=== PATIENT | female | born 1940 | race Caucasian/White ===

== ENCOUNTER 2020-10-25 09:11 | Inpatient (IN) ==
[2020-10-25 09:46] LABS: Bacteria,Urine Few per hpf (None-Few); Bilirubin,Urine Negative (Negative); Blood,Urine Trace (Negative); Clarity,Urine Clear (Clear); Color,Urine Light-Yellow (Yellow); Glucose,Urine (UA) Normal (Normal); Hyaline Casts,Urine Many per lpf (None Seen); Ketones,Urine Negative (Negative); Leukocyte Esterase,Urine Trace (Negative); Mucus,Urine Few per lpf (None-Few); Nitrite,Urine Negative (Negative); Protein,Urine Negative (Neg-Trace); Specific Gravity,Urine 1.014 (1.010-1.025); Urobilinogen,Urine Normal (Normal)
[2020-10-25 10:01] LABS: Eosinophils % 0.3 %; Immature Granulocytes % 0.7 % (0-4); Platelet Count 108 K/mcL (140-400); Red Blood Count 1.71 M/mcL (3.82-4.97)
[2020-10-25 10:02] LABS: Basophils % 0.2 %; Hematocrit 16.9 % (35.3-44.9); Lymphocytes # 0.5 K/mcL (0.6-4.6); Lymphocytes % 7.9 %; Mean Corpuscular HGB Conc 29.6 g/dL (31.6-35.5); Mean Corpuscular Hemoglobin 29.2 pg (28.0-33.3); Mean Corpuscular Volume 98.8 fL (83.0-100.0); Monocytes # 0.6 K/mcL (0.0-1.3); Monocytes % 9.9 %; Neutrophils # 4.6 K/mcL (1.6-8.9); Nucleated Red Blood Cells 0.5 /100 WBC (0); White Blood Count 5.7 K/mcL (4.3-11.1)
[2020-10-25 10:13] LABS: INR 1.6; Prothrombin Time 17.7 Seconds (9.4-12.1)
[2020-10-25 10:23] LABS: Albumin 3.4 g/dL (3.5-5.7); Albumin/Globulin Ratio 1.3 (1.1-2.2); Bilirubin,Direct 0.4 mg/dL (0.0-0.2); Bilirubin,Indirect 0.5 mg/dL (0.0-1.0); Bilirubin,Total 0.9 mg/dL (0.3-1.0); Calcium 8.7 mg/dL (8.6-10.3); Globulin 2.6 g/dL (2.4-3.5); Magnesium 2.3 mg/dL (1.6-2.6); Phosphorous 3.7 mg/dL (2.7-4.5); Potassium 4.1 mEq/L (3.5-5.1); Troponin I 0.03 ng/mL (< 0.04)
[2020-10-25 10:25] LABS: Anisocytosis 1+ (Not Present); Hypochromasia Present (Not Present); Poikilocytosis 1+ (Not Present); Polychromasia 1+ (Not Present)
[2020-10-25] MEDS ORDERED: 0.9 % Sodium Chloride 1,000 ML IVC ONE (10:25)
[2020-10-25] MEDS ORDERED: cefTRIAXone 1,000 MG in Water for inj. (sterile) 10 ML IVP ONE (10:55)
[2020-10-25] MEDS ORDERED: 0.9 % Sodium Chloride 250 ML ONE ×3 (12:09→15:53)
[2020-10-25] MEDS ORDERED: Ondansetron 4 MG/2 ML VIAL IVP PRN (12:19)
[2020-10-25] MEDS ORDERED: Naloxone 0.4 MG/ML INJ IVP PRN (12:19)
[2020-10-25] MEDS ORDERED: Ipratropium/Albuterol Neb 3 ML IH PRN (13:28)
[2020-10-25] MEDS ORDERED: Perflutren Lipid Microsphere 1.3 ML in 0.9 % Sodium Chloride 8.7 ML IVP PRN (13:42)
[2020-10-25] MEDS ORDERED: Dextrose Gel 15 GM/37.5 ML TUBE PO PRN ×2 (13:51)
[2020-10-25] MEDS ORDERED: *HR* Dextrose 50 % in Water (Vial) 50 ML VIAL IVP PRN (13:51)
[2020-10-25] MEDS ORDERED: D5% in Water 1,000 ML IVC PRN (13:51)
[2020-10-25] MEDS: Furosemide 40 MG/4 ML VIAL IVP ONE (13:54)
[2020-10-25 14:53] LABS: Chol/HDL Ratio 2.3 (0-4.9)
[2020-10-25 15:06] LABS: Thyroid Stimulating Hormone 3.612 mcIU/mL (0.340-5.600)
[2020-10-25 16:26] LABS: Estimated Average Glucose 114 mg/dl; Hemoglobin A1C 5.6 %
[2020-10-25 17:15] LABS: ABG Base Excess -1 mEq/L (-2 to 3); ABG HCO3 23 mEq/L (21-27); ABG Oxygen Saturation 94 % (95-98); ABG PCO2 34 mmHg (35-45); ABG PH 7.44 pH Units (7.32-7.45); ABG PO2 67 mmHg (85-104); ABG TCO2 24 mEq/L (20-26)
[2020-10-25] MEDS: Ipratropium/Albuterol Neb 3 ML IH SCH ×3 (17:16→23:20)
[2020-10-25] MEDS ORDERED: SODIUM CHLORIDE/NAHCO3/KCL/PEG 4,000 ML SOLN.RECON PO ONE ×2 (18:05→20:00)
[2020-10-25 18:59] LABS: Hematocrit 25.8 % (35.3-44.9)
[2020-10-25 19:02] LABS: Hemoglobin 8.1 g/dL (11.5-15.4)
[2020-10-25] MEDS: Pantoprazole 40 MG VIAL IVP SCH (19:02)
[2020-10-25] MEDS: carvediloL 6.25 MG TABLET PO SCH (20:09)
[2020-10-26 02:25] LABS: Basophils % 0.1 %; Eosinophils % 0.1 %; Hematocrit 23.5 % (35.3-44.9); Hemoglobin 7.4 g/dL (11.5-15.4); Immature Granulocytes % 0.6 % (0-4); Lymphocytes # 0.3 K/mcL (0.6-4.6); Lymphocytes % 4.4 %; Mean Corpuscular HGB Conc 31.5 g/dL (31.6-35.5); Mean Corpuscular Hemoglobin 28.1 pg (28.0-33.3); Mean Platelet Volume 9.6 fL (9.4-12.4); Monocytes # 0.7 K/mcL (0.0-1.3); Monocytes % 8.9 %; Neutrophils # 6.7 K/mcL (1.6-8.9); Nucleated Red Blood Cells 0.3 /100 WBC (0); Platelet Count 104 K/mcL (140-400); Red Blood Count 2.63 M/mcL (3.82-4.97); Red Cell Distribution Width 21.2 % (11.5-14.5); Segmented Neutrophils % 85.9 %; White Blood Count 7.8 K/mcL (4.3-11.1)
[2020-10-26 02:26] LABS: Mean Corpuscular Volume 89.4 fL (83.0-100.0)
[2020-10-26 02:32] LABS: INR 1.4
[2020-10-26 02:42] LABS: Albumin/Globulin Ratio 1.1 (1.1-2.2); Bilirubin,Total 1.2 mg/dL (0.3-1.0); Calcium 7.9 mg/dL (8.6-10.3); Globulin 2.7 g/dL (2.4-3.5); Phosphorous 3.2 mg/dL (2.7-4.5); Potassium 3.6 mEq/L (3.5-5.1); Total Protein 5.7 g/dL (6.4-8.9)
[2020-10-26 02:43] LABS: % Iron Saturation 4 % (15-50); Iron 15 mcg/dL (50-170); Transferrin 253 mg/dL (203-362)
[2020-10-26 03:01] LABS: Ferritin 65 ng/mL (10-120)
[2020-10-26 03:09] LABS: Folate 10.6 ng/mL (3.0-16.0)
[2020-10-26] MEDS: Ipratropium/Albuterol Neb 3 ML IH SCH ×7 (03:35→23:03)
[2020-10-26] MEDS: Pantoprazole 40 MG VIAL IVP SCH ×2 (05:36→16:54)
[2020-10-26] MEDS: clonazePAM 0.5 MG TABLET PO SCH (08:58)
[2020-10-26] MEDS: cefTRIAXone 1,000 MG in 0.9 % Sodium Chloride Mini Bag 100 ML IVPB SCH (08:58)
[2020-10-26] MEDS: carvediloL 6.25 MG TABLET PO SCH ×2 (08:58→16:53)
[2020-10-26 13:48] LABS: Adenovirus Not Detected (Not Detect); Bordetella Pertussis Not Detected (Not Detect); Chlamydophila pneumoniae Not Detected (Not Detect); Coronavirus 229E Not Detected (Not Detect); Coronavirus HKU1 Not Detected (Not Detect); Coronavirus NL63 Not Detected (Not Detect); Coronavirus OC43 Not Detected (Not Detect); Human Metapneumovirus Not Detected (Not Detect); Human Rhinovirus/Enterovirus Not Detected (Not Detect); Influenza A Subtype 2009 H1 Not Detected (Not Detect); Influenza B Not Detected (Not Detect); Mycoplasma pneumoniae Not Detected (Not Detect); Parainfluenza Virus 1 Not Detected (Not Detect); Parainfluenza Virus 2 Not Detected (Not Detect); Parainfluenza Virus 3 Not Detected (Not Detect); Parainfluenza Virus 4 Not Detected (Not Detect); Respiratory Syncytial Virus Not Detected (Not Detect); SARS-CoV-2 Not Detected (Not Detect)
[2020-10-26] MEDS ORDERED: Lidocaine -MPF 2% 2 ML VIAL ONE (14:22)
[2020-10-26] MEDS ORDERED: *HR* Propofol 200 MG/20 ML VIAL IVP ONE ×2 (14:22→15:00)
[2020-10-26] MEDS ORDERED: Furosemide 40 MG/4 ML VIAL IVP ONE (14:23)
[2020-10-26] MEDS ORDERED: Saline Nasal Spray 44 ML BOTTLE NS PRN (14:41)
[2020-10-26] MEDS: Insulin LISPRO 300 UNITS/3 ML VIAL SUBQ SCH ×2 (14:52→17:11)
[2020-10-26] MEDS ORDERED: Albuterol 2.5 MG/3 ML NEBULIZER ONE (15:25)
[2020-10-26] MEDS ORDERED: Albuterol 2.5 MG/3 ML NEBULIZER IH ONE (15:27)
[2020-10-26 16:18] LABS: ABG Base Excess -1 mEq/L (-2 to 3); ABG HCO3 24 mEq/L (21-27); ABG Oxygen Saturation 91 % (95-98); ABG PCO2 42 mmHg (35-45); ABG PH 7.36 pH Units (7.32-7.45); ABG PO2 64 mmHg (85-104); ABG TCO2 25 mEq/L (20-26)
[2020-10-26 16:28] LABS: Hematocrit 30.9 % (35.3-44.9)
[2020-10-26 16:30] LABS: Hemoglobin 9.8 g/dL (11.5-15.4)
[2020-10-26] MEDS: Albumin 25% 25gram/100mL 25 GM/100 ML IV.SOLN IVPB SCH ×2 (16:52→23:05)
[2020-10-26] MEDS: Furosemide 40 MG/4 ML VIAL IVP ONE (16:54)
[2020-10-26] MEDS: Furosemide 20 MG/2 ML VIAL IVP SCH (16:55)
[2020-10-26 18:40] LABS: ABG Base Excess -1 mEq/L (-2 to 3); ABG HCO3 24 mEq/L (21-27); ABG Oxygen Saturation 90 % (95-98); ABG PCO2 38 mmHg (35-45); ABG PH 7.41 pH Units (7.32-7.45); ABG PO2 57 mmHg (85-104); ABG TCO2 25 mEq/L (20-26)
[2020-10-26] MEDS ORDERED: Morphine Sulfate 2 MG/ML SYRINGE IVP STA (19:30)
[2020-10-26] MEDS: Chlorhexidine Rinse 15 ML MOUTHWASH MM SCH (20:10)
[2020-10-27] MEDS: Furosemide 20 MG/2 ML VIAL IVP SCH ×2 (00:53→12:30)
[2020-10-27] MEDS: Ipratropium/Albuterol Neb 3 ML IH SCH ×5 (03:32→19:55)
[2020-10-27] MEDS: Pantoprazole 40 MG VIAL IVP SCH (05:00)
[2020-10-27 07:06] LABS: Hematocrit 25.8 % (35.3-44.9); Immature Granulocytes % 0.3 % (0-4); Immature Platelets 3.5 % (1.1-6.1); Lymphocytes # 0.4 K/mcL (0.6-4.6); Mean Corpuscular Hemoglobin 28.1 pg (28.0-33.3); Mean Corpuscular Volume 90.5 fL (83.0-100.0); Mean Platelet Volume 10.6 fL (9.4-12.4); Monocytes # 0.6 K/mcL (0.0-1.3); Monocytes % 8.3 %; Nucleated Red Blood Cells 0.3 /100 WBC (0); Red Blood Count 2.85 M/mcL (3.82-4.97); Red Cell Distribution Width 20.2 % (11.5-14.5); Segmented Neutrophils % 86.4 %
[2020-10-27 07:12] LABS: Neutrophils # 6.1 K/mcL (1.6-8.9); Platelet Count 96 K/mcL (140-400)
[2020-10-27 07:28] LABS: Albumin 3.7 g/dL (3.5-5.7); Albumin/Globulin Ratio 1.5 (1.1-2.2); Bilirubin,Total 1.3 mg/dL (0.3-1.0); Calcium 8.6 mg/dL (8.6-10.3); Globulin 2.4 g/dL (2.4-3.5); Magnesium 2.1 mg/dL (1.6-2.6); Phosphorous 3.5 mg/dL (2.7-4.5); Potassium 3.4 mEq/L (3.5-5.1); Total Protein 6.1 g/dL (6.4-8.9)
[2020-10-27] MEDS: Insulin LISPRO 300 UNITS/3 ML VIAL SUBQ SCH ×3 (10:27→16:35)
[2020-10-27] MEDS: clonazePAM 0.5 MG TABLET PO SCH (10:27)
[2020-10-27] MEDS: Multivit/Ca/Min/Fe/FA 1 TAB TABLET PO SCH (10:28)
[2020-10-27] MEDS: Albumin 25% 25gram/100mL 25 GM/100 ML IV.SOLN IVPB SCH (10:28)
[2020-10-27] MEDS: carvediloL 6.25 MG TABLET PO SCH ×2 (10:28→16:34)
[2020-10-27] MEDS: cefTRIAXone 1,000 MG in 0.9 % Sodium Chloride Mini Bag 100 ML IVPB SCH (10:29)
[2020-10-27] MEDS: Chlorhexidine Rinse 15 ML MOUTHWASH MM SCH ×2 (10:29→20:38)
[2020-10-27] MEDS: amLODIPine 5 MG TABLET PO SCH (10:30)
[2020-10-27] MEDS ORDERED: Ferumoxytol 510 MG in 0.9 % Sodium Chloride 100 ML IVPB ONE (10:47)
[2020-10-27 13:10] LABS: Hematocrit 24.4 % (35.3-44.9)
[2020-10-27 13:12] LABS: Hemoglobin 7.9 g/dL (11.5-15.4)
[2020-10-28] MEDS: Ipratropium/Albuterol Neb 3 ML IH SCH ×6 (00:17→20:01)
[2020-10-28 05:53] LABS: Eosinophils % 1.2 %; Immature Granulocytes % 0.5 % (0-4); Red Blood Count 3.02 M/mcL (3.82-4.97); Red Cell Distribution Width 19.8 % (11.5-14.5)
[2020-10-28 05:55] LABS: Basophils % 0.2 %; Eosinophils # 0.1 K/mcL (0.0-0.6); Hematocrit 27.5 % (35.3-44.9); Hemoglobin 8.6 g/dL (11.5-15.4); Immature Platelets 3.8 % (1.1-6.1); Lymphocytes # 0.4 K/mcL (0.6-4.6); Lymphocytes % 6.8 %; Mean Corpuscular HGB Conc 31.3 g/dL (31.6-35.5); Mean Corpuscular Hemoglobin 28.5 pg (28.0-33.3); Mean Corpuscular Volume 91.1 fL (83.0-100.0); Mean Platelet Volume 10.6 fL (9.4-12.4); Monocytes # 0.5 K/mcL (0.0-1.3); Neutrophils # 4.8 K/mcL (1.6-8.9); Platelet Count 100 K/mcL (140-400); Segmented Neutrophils % 83.3 %; White Blood Count 5.7 K/mcL (4.3-11.1)
[2020-10-28 06:29] LABS: Albumin 3.7 g/dL (3.5-5.7); Albumin/Globulin Ratio 1.4 (1.1-2.2); Bilirubin,Total 1.4 mg/dL (0.3-1.0); Calcium 8.9 mg/dL (8.6-10.3); Globulin 2.6 g/dL (2.4-3.5); Magnesium 2.3 mg/dL (1.6-2.6); Phosphorous 3.1 mg/dL (2.7-4.5); Potassium 3.8 mEq/L (3.5-5.1); Total Protein 6.3 g/dL (6.4-8.9)
[2020-10-28] MEDS ORDERED: Torsemide 20 MG TABLET PO SCH (09:00)
[2020-10-28] MEDS: carvediloL 6.25 MG TABLET PO SCH ×2 (09:12→19:36)
[2020-10-28] MEDS: clonazePAM 0.5 MG TABLET PO SCH (09:13)
[2020-10-28] MEDS: Insulin LISPRO 300 UNITS/3 ML VIAL SUBQ SCH ×4 (09:13→22:33)
[2020-10-28] MEDS: amLODIPine 5 MG TABLET PO SCH (09:13)
[2020-10-28] MEDS: Chlorhexidine Rinse 15 ML MOUTHWASH MM SCH ×2 (09:13→22:33)
[2020-10-28] MEDS: Multivit/Ca/Min/Fe/FA 1 TAB TABLET PO SCH (09:13)
[2020-10-28] MEDS ORDERED: Furosemide 40 MG/4 ML VIAL IVP ONE (13:31)
[2020-10-28] MEDS ORDERED: Albumin 25% 25gram/100mL 25 GM/100 ML IV.SOLN IVPB ONE (13:32)
[2020-10-28] MEDS: Melatonin 3 MG TABLET PO PRN (22:33)
[2020-10-28] MEDS ORDERED: Haloperidol Lactate 5 MG/ML VIAL IM ONE (23:01)
[2020-10-29] MEDS: Ipratropium/Albuterol Neb 3 ML IH SCH ×7 (00:30→23:14)
[2020-10-29 01:56] LABS: Basophils % 0.2 %; Eosinophils # 0.1 K/mcL (0.0-0.6); Eosinophils % 1.2 %; Hematocrit 28.4 % (35.3-44.9); Hemoglobin 8.7 g/dL (11.5-15.4); Immature Granulocytes % 0.3 % (0-4); Lymphocytes # 0.4 K/mcL (0.6-4.6); Lymphocytes % 5.8 %; Mean Corpuscular HGB Conc 30.6 g/dL (31.6-35.5); Mean Corpuscular Volume 91.3 fL (83.0-100.0); Mean Platelet Volume 10.4 fL (9.4-12.4); Monocytes # 0.5 K/mcL (0.0-1.3); Monocytes % 8.4 %; Neutrophils # 5.1 K/mcL (1.6-8.9); Platelet Count 114 K/mcL (140-400); Red Blood Count 3.11 M/mcL (3.82-4.97); Red Cell Distribution Width 19.3 % (11.5-14.5); Segmented Neutrophils % 84.1 %
[2020-10-29 02:08] LABS: Albumin 3.8 g/dL (3.5-5.7); Albumin/Globulin Ratio 1.4 (1.1-2.2); Bilirubin,Total 1.3 mg/dL (0.3-1.0); Calcium 9.2 mg/dL (8.6-10.3); Globulin 2.8 g/dL (2.4-3.5); Magnesium 2.3 mg/dL (1.6-2.6); Phosphorous 3.2 mg/dL (2.7-4.5); Potassium 3.7 mEq/L (3.5-5.1); Total Protein 6.6 g/dL (6.4-8.9)
[2020-10-29] MEDS ORDERED: QUEtiapine Fumarate 25 MG TABLET PO ONE (02:09)
[2020-10-29] MEDS: carvediloL 6.25 MG TABLET PO SCH ×2 (08:41→17:01)
[2020-10-29] MEDS: cefTRIAXone 1,000 MG in 0.9 % Sodium Chloride Mini Bag 100 ML IVPB SCH (08:42)
[2020-10-29] MEDS: Multivit/Ca/Min/Fe/FA 1 TAB TABLET PO SCH (08:42)
[2020-10-29] MEDS: Azithromycin 250 MG TABLET PO SCH (08:42)
[2020-10-29] MEDS: amLODIPine 5 MG TABLET PO SCH (08:42)
[2020-10-29] MEDS: clonazePAM 0.5 MG TABLET PO SCH (08:42)
[2020-10-29] MEDS: Insulin LISPRO 300 UNITS/3 ML VIAL SUBQ SCH ×4 (08:43→20:57)
[2020-10-29] MEDS: Chlorhexidine Rinse 15 ML MOUTHWASH MM SCH ×2 (08:44→20:55)
[2020-10-29] MEDS ORDERED: Furosemide 40 MG/4 ML VIAL IVP ONE (11:21)
[2020-10-29] MEDS ORDERED: Albumin 25% 25gram/100mL 25 GM/100 ML IV.SOLN IVPB ONE (11:22)
[2020-10-29 15:02] LABS: VBG HCO3 26 mEq/L (21-27); VBG PCO2 44 mmHg (41-51); VBG PH 7.38 pH Units (7.32-7.42); VBG PO2 181 mmHg (25-50)
[2020-10-29] MEDS ORDERED: Haloperidol Lactate 5 MG/ML VIAL IM PRN (18:48)
[2020-10-29] MEDS: Melatonin 3 MG TABLET PO PRN (20:55)
[2020-10-29] MEDS: QUEtiapine Fumarate 25 MG TABLET PO SCH (20:55)
[2020-10-30] MEDS: Ipratropium/Albuterol Neb 3 ML IH SCH ×6 (03:52→23:25)
[2020-10-30] MEDS ORDERED: Haloperidol Lactate 5 MG/ML VIAL IM ONE (04:09)
[2020-10-30] MEDS ORDERED: Furosemide 20 MG/2 ML VIAL IVP ONE (07:44)
[2020-10-30] MEDS: Chlorhexidine Rinse 15 ML MOUTHWASH MM SCH ×2 (07:50→21:14)
[2020-10-30] MEDS: clonazePAM 0.5 MG TABLET PO SCH (07:50)
[2020-10-30] MEDS: carvediloL 6.25 MG TABLET PO SCH ×2 (07:51→16:04)
[2020-10-30] MEDS: Multivit/Ca/Min/Fe/FA 1 TAB TABLET PO SCH (07:51)
[2020-10-30] MEDS: Azithromycin 250 MG TABLET PO SCH (07:51)
[2020-10-30] MEDS: amLODIPine 5 MG TABLET PO SCH (07:51)
[2020-10-30] MEDS: cefTRIAXone 1,000 MG in 0.9 % Sodium Chloride Mini Bag 100 ML IVPB SCH (07:51)
[2020-10-30 08:27] LABS: Basophils % 0.3 %; Eosinophils # 0.2 K/mcL (0.0-0.6); Eosinophils % 2.5 %; Hematocrit 32.4 % (35.3-44.9); Hemoglobin 9.7 g/dL (11.5-15.4); Immature Granulocytes % 0.6 % (0-4); Lymphocytes # 0.3 K/mcL (0.6-4.6); Lymphocytes % 4.4 %; Mean Corpuscular HGB Conc 29.9 g/dL (31.6-35.5); Mean Corpuscular Hemoglobin 27.9 pg (28.0-33.3); Mean Corpuscular Volume 93.1 fL (83.0-100.0); Monocytes # 0.5 K/mcL (0.0-1.3); Monocytes % 7.5 %; Neutrophils # 6.1 K/mcL (1.6-8.9); Platelet Count 122 K/mcL (140-400); Red Blood Count 3.48 M/mcL (3.82-4.97); Red Cell Distribution Width 18.6 % (11.5-14.5); Segmented Neutrophils % 84.7 %; White Blood Count 7.2 K/mcL (4.3-11.1)
[2020-10-30 08:50] LABS: Calcium 9.5 mg/dL (8.6-10.3); Magnesium 2.1 mg/dL (1.6-2.6); Phosphorous 3.4 mg/dL (2.7-4.5); Potassium 3.6 mEq/L (3.5-5.1)
[2020-10-30] MEDS: Insulin LISPRO 300 UNITS/3 ML VIAL SUBQ SCH ×4 (09:28→22:23)
[2020-10-30] MEDS ORDERED: Albumin 25% 25gram/100mL 25 GM/100 ML IV.SOLN IV ONE (10:32)
[2020-10-30] MEDS ORDERED: Albumin 25% 25gram/100mL 25 GM/100 ML IV.SOLN IVPB ONE (11:30)
[2020-10-30 11:38] LABS: Amorphous Sediment,Urine Few per hpf (None-Few); Bacteria,Urine Few per hpf (None-Few); Bilirubin,Urine Negative (Negative); Blood,Urine Large (Negative); Budding Yeast,Urine Many per hpf (None Seen); Clarity,Urine Turbid (Clear); Color,Urine Yellow (Yellow); Glucose,Urine (UA) Normal (Normal); Hyaline Casts,Urine Many per lpf (None Seen); Ketones,Urine Negative (Negative); Leukocyte Esterase,Urine Small (Negative); Mucus,Urine Few per lpf (None-Few); Nitrite,Urine Negative (Negative); Protein,Urine 100 mg/dL (Neg-Trace); RBC,Urine 50-100 per hpf (0-3); Specific Gravity,Urine 1.014 (1.010-1.025); Urobilinogen,Urine Normal (Normal)
[2020-10-30] MEDS ORDERED: Furosemide 40 MG/4 ML VIAL IVP ONE (12:00)
[2020-10-30 12:34] LABS: VBG HCO3 27 mEq/L (21-27); VBG PCO2 42 mmHg (41-51); VBG PH 7.41 pH Units (7.32-7.42); VBG PO2 185 mmHg (25-50)
[2020-10-30] MEDS: Furosemide 40 MG in 0.9 % Sodium Chloride 50 ML IV SCH ×2 (13:23→22:23)
[2020-10-30] MEDS ORDERED: Acetaminophen IV 1,000 MG/100 ML BAG IVPB ONE (15:27)
[2020-10-30] MEDS: QUEtiapine Fumarate 25 MG TABLET PO SCH ×2 (21:14→22:23)
[2020-10-31 01:30] LABS: Basophils % 0.2 %; Lymphocytes % 7.8 %
[2020-10-31 01:32] LABS: Eosinophils % 0.3 %; Hematocrit 27.7 % (35.3-44.9); Hemoglobin 8.3 g/dL (11.5-15.4); Immature Granulocytes % 0.6 % (0-4); Immature Platelets 3.6 % (1.1-6.1); Lymphocytes # 0.5 K/mcL (0.6-4.6); Mean Corpuscular Hemoglobin 28.3 pg (28.0-33.3); Mean Corpuscular Volume 94.5 fL (83.0-100.0); Mean Platelet Volume 10.6 fL (9.4-12.4); Monocytes # 0.8 K/mcL (0.0-1.3); Monocytes % 12.3 %; Neutrophils # 4.9 K/mcL (1.6-8.9); Platelet Count 103 K/mcL (140-400); Red Blood Count 2.93 M/mcL (3.82-4.97); Red Cell Distribution Width 19.1 % (11.5-14.5); Segmented Neutrophils % 78.8 %; White Blood Count 6.2 K/mcL (4.3-11.1)
[2020-10-31 01:50] LABS: Phosphorous 3.7 mg/dL (2.7-4.5); Potassium 3.4 mEq/L (3.5-5.1)
[2020-10-31] MEDS: Ipratropium/Albuterol Neb 3 ML IH SCH ×6 (03:23→23:22)
[2020-10-31] MEDS: carvediloL 6.25 MG TABLET PO SCH (08:24)
[2020-10-31] MEDS: amLODIPine 5 MG TABLET PO SCH (08:24)
[2020-10-31] MEDS: clonazePAM 0.5 MG TABLET PO SCH (08:24)
[2020-10-31] MEDS: Chlorhexidine Rinse 15 ML MOUTHWASH MM SCH ×2 (08:24→19:59)
[2020-10-31] MEDS: Insulin LISPRO 300 UNITS/3 ML VIAL SUBQ SCH ×4 (08:25→18:38)
[2020-10-31] MEDS: Multivit/Ca/Min/Fe/FA 1 TAB TABLET PO SCH (08:25)
[2020-10-31] MEDS: Azithromycin 250 MG TABLET PO SCH (08:26)
[2020-10-31] MEDS: cefTRIAXone 1,000 MG in 0.9 % Sodium Chloride Mini Bag 100 ML IVPB SCH (08:29)
[2020-10-31] MEDS: Furosemide 40 MG in 0.9 % Sodium Chloride 50 ML IV SCH ×2 (08:31→20:02)
[2020-10-31] MEDS ORDERED: *HR* Metoprolol 5 MG/5 ML VIAL IVP ONE ×2 (08:43→08:46)
[2020-10-31] MEDS ORDERED: DilTIAZem 50 MG/50 ML IV.SOLN IVC SCH (08:45)
[2020-10-31] MEDS: Nystatin POWDER 30 GM BOTTLE TP SCH ×4 (09:17→20:02)
[2020-10-31 09:55] LABS: VBG HCO3 23 mEq/L (21-27); VBG PCO2 33 mmHg (41-51); VBG PH 7.46 pH Units (7.32-7.42); VBG PO2 130 mmHg (25-50)
[2020-10-31] MEDS ORDERED: Amiodarone Premix 360 MG/200 ML BAG IVC ONE (10:01)
[2020-10-31] MEDS ORDERED: Amiodarone Premix 150 MG/100 ML BAG IVPB ONE (12:14)
[2020-10-31 12:46] LABS: Hematocrit 29.7 % (35.3-44.9); Hemoglobin 9.1 g/dL (11.5-15.4)
[2020-10-31] MEDS: Albumin 25% 25gram/100mL 25 GM/100 ML IV.SOLN IVPB SCH ×2 (15:43→23:24)
[2020-10-31] MEDS: Piperacillin/Tazobactam 3.375 GM in 0.9 % Sodium Chloride Mini Bag 100 ML IVPB SCH (17:15)
[2020-10-31] MEDS: Amiodarone Premix 360 MG/200 ML BAG IVC SCH (17:16)
[2020-10-31] MEDS: QUEtiapine Fumarate 25 MG TABLET PO SCH (20:00)
[2020-11-01] MEDS: Insulin LISPRO 300 UNITS/3 ML VIAL SUBQ SCH ×4 (00:25→20:13)
[2020-11-01] MEDS: Piperacillin/Tazobactam 3.375 GM in 0.9 % Sodium Chloride Mini Bag 100 ML IVPB SCH ×3 (01:16→17:04)
[2020-11-01] MEDS: Ipratropium/Albuterol Neb 3 ML IH SCH ×5 (03:49→20:08)
[2020-11-01 04:50] LABS: Basophils % 0.1 %; Eosinophils # 0.1 K/mcL (0.0-0.6); Eosinophils % 0.8 %; Hematocrit 27.1 % (35.3-44.9); Hemoglobin 8.6 g/dL (11.5-15.4); Immature Granulocytes % 0.3 % (0-4); Immature Platelets 3.6 % (1.1-6.1); Lymphocytes # 0.4 K/mcL (0.6-4.6); Lymphocytes % 4.7 %; Mean Corpuscular HGB Conc 31.7 g/dL (31.6-35.5); Mean Corpuscular Hemoglobin 29.7 pg (28.0-33.3); Mean Corpuscular Volume 93.4 fL (83.0-100.0); Mean Platelet Volume 10.6 fL (9.4-12.4); Monocytes # 0.8 K/mcL (0.0-1.3); Monocytes % 10.5 %; Neutrophils # 6.2 K/mcL (1.6-8.9); Platelet Count 104 K/mcL (140-400); Red Cell Distribution Width 19.8 % (11.5-14.5); Segmented Neutrophils % 83.6 %; White Blood Count 7.4 K/mcL (4.3-11.1)
[2020-11-01 05:05] LABS: Calcium 9.5 mg/dL (8.6-10.3); Potassium 3.5 mEq/L (3.5-5.1)
[2020-11-01 05:18] LABS: Magnesium 2.1 mg/dL (1.6-2.6); Phosphorous 3.1 mg/dL (2.7-4.5)
[2020-11-01] MEDS: Amiodarone Premix 360 MG/200 ML BAG IVC SCH ×2 (05:37→17:43)
[2020-11-01] MEDS: Albumin 25% 25gram/100mL 25 GM/100 ML IV.SOLN IVPB SCH (08:44)
[2020-11-01] MEDS ORDERED: Albumin 25% 25gram/100mL 25 GM/100 ML IV.SOLN IVPB ONE (09:34)
[2020-11-01] MEDS ORDERED: Furosemide 80 MG in 0.9 % Sodium Chloride 50 ML IVPB ONE (09:36)
[2020-11-01] MEDS: Multivit/Ca/Min/Fe/FA 1 TAB TABLET PO SCH (09:46)
[2020-11-01] MEDS: clonazePAM 0.5 MG TABLET PO SCH (09:47)
[2020-11-01] MEDS: Nystatin POWDER 30 GM BOTTLE TP SCH ×3 (09:47→20:14)
[2020-11-01] MEDS: Chlorhexidine Rinse 15 ML MOUTHWASH MM SCH ×2 (10:14→20:14)
[2020-11-01] MEDS ORDERED: E-Z-PAQUE (BARIUM SULF) SUSP 1 BOTTLE PO ONE (11:51)
[2020-11-01] MEDS ORDERED: E-Z-HD (BARIUM SULF) SUSPENSION PO ONE (11:51)
[2020-11-01] MEDS: Doxycycline 100 MG in 0.9 % Sodium Chloride Mini Bag 100 ML IVPB SCH (20:13)
[2020-11-01] MEDS ORDERED: Insulin LISPRO 300 UNITS/3 ML VIAL SUBQ SCH (21:15)
[2020-11-01] MEDS: Insulin DETEMIR 100 UNIT/ML X5UNITS SUBQ SCH (22:00)
[2020-11-02] MEDS ORDERED: Insulin LISPRO 300 UNITS/3 ML VIAL SUBQ ONE (00:49)
[2020-11-02] MEDS: Piperacillin/Tazobactam 3.375 GM in 0.9 % Sodium Chloride Mini Bag 100 ML IVPB SCH ×3 (01:18→21:16)
[2020-11-02] MEDS: Amiodarone Premix 360 MG/200 ML BAG IVC SCH ×2 (01:35→16:30)
[2020-11-02] MEDS: Levalbuterol Neb 1.25 MG/3 ML IH SCH ×5 (03:34→21:44)
[2020-11-02] MEDS: Doxycycline 100 MG in 0.9 % Sodium Chloride Mini Bag 100 ML IVPB SCH ×2 (05:04→17:28)
[2020-11-02 05:13] LABS: Basophils % 0.1 %; Eosinophils # 0.1 K/mcL (0.0-0.6); Eosinophils % 0.8 %; Hematocrit 28.9 % (35.3-44.9); Hemoglobin 8.8 g/dL (11.5-15.4); Immature Granulocytes % 0.5 % (0-4); Lymphocytes # 0.4 K/mcL (0.6-4.6); Lymphocytes % 4.6 %; Mean Corpuscular HGB Conc 30.4 g/dL (31.6-35.5); Mean Corpuscular Hemoglobin 28.5 pg (28.0-33.3); Mean Corpuscular Volume 93.5 fL (83.0-100.0); Mean Platelet Volume 10.6 fL (9.4-12.4); Monocytes # 0.7 K/mcL (0.0-1.3); Monocytes % 8.5 %; Neutrophils # 6.6 K/mcL (1.6-8.9); Platelet Count 110 K/mcL (140-400); Red Blood Count 3.09 M/mcL (3.82-4.97); Red Cell Distribution Width 19.9 % (11.5-14.5); Segmented Neutrophils % 85.5 %; White Blood Count 7.8 K/mcL (4.3-11.1)
[2020-11-02 05:31] LABS: Albumin 3.9 g/dL (3.5-5.7); Albumin/Globulin Ratio 1.4 (1.1-2.2); Bilirubin,Total 0.9 mg/dL (0.3-1.0); Calcium 9.6 mg/dL (8.6-10.3); Globulin 2.7 g/dL (2.4-3.5); Magnesium 2.3 mg/dL (1.6-2.6); Phosphorous 3.5 mg/dL (2.7-4.5); Potassium 3.8 mEq/L (3.5-5.1); Total Protein 6.6 g/dL (6.4-8.9)
[2020-11-02] MEDS: Chlorhexidine Rinse 15 ML MOUTHWASH MM SCH ×2 (07:45→21:15)
[2020-11-02] MEDS: Insulin LISPRO 300 UNITS/3 ML VIAL SUBQ SCH ×4 (08:28→21:20)
[2020-11-02] MEDS: Multivit/Ca/Min/Fe/FA 1 TAB TABLET PO SCH (08:42)
[2020-11-02] MEDS: Nystatin POWDER 30 GM BOTTLE TP SCH ×3 (08:42→21:33)
[2020-11-02] MEDS ORDERED: 0.9 % Sodium Chloride 250 ML IVC PRN (09:48)
[2020-11-02] MEDS ORDERED: *HR* Heparin 10,000 UNIT/10 ML VIAL IV PRN (09:48)
[2020-11-02] MEDS ORDERED: Heparin 1,000 UNITS/500 mL 500 ML ONE (09:54)
[2020-11-02] MEDS ORDERED: Lidocaine/EPI 1:100k 1% 50 ML VIAL ONE (09:54)
[2020-11-02] MEDS ORDERED: 0.9 % Sodium Chloride 1,000 ML PRIME SCH (10:00)
[2020-11-02] MEDS ORDERED: *HR* Heparin 5,000 UNIT/ML VIAL ONE (10:22)
[2020-11-02] MEDS ORDERED: 0.9 % Sodium Chloride 1,000 ML ONE (10:46)
[2020-11-02 11:54] LABS: Hepatitis B Surface Antibody < 3.10 mIU/mL
[2020-11-02 12:05] LABS: Hepatitis B Surface Antigen Nonreactive (Nonreactive)
[2020-11-02] MEDS: Furosemide 40 MG in 0.9 % Sodium Chloride 50 ML IV SCH (15:54)
[2020-11-02] MEDS ORDERED: Amiodarone Premix 360 MG/200 ML BAG IVC ONE (16:21)
[2020-11-02] MEDS: Insulin DETEMIR 100 UNIT/ML X5UNITS SUBQ SCH (21:16)
[2020-11-02] MEDS: Metoprolol XL (24 HR) Succ 50 MG TAB.ER.24H PO SCH (21:17)
[2020-11-03] MEDS: Levalbuterol Neb 1.25 MG/3 ML IH SCH ×4 (03:35→22:20)
[2020-11-03] MEDS: Amiodarone Premix 360 MG/200 ML BAG IVC SCH (05:58)
[2020-11-03] MEDS: Doxycycline 100 MG in 0.9 % Sodium Chloride Mini Bag 100 ML IVPB SCH ×2 (05:59→17:26)
[2020-11-03] MEDS ORDERED: *HR* Heparin 10,000 UNIT/10 ML VIAL IV PRN (07:22)
[2020-11-03] MEDS ORDERED: 0.9 % Sodium Chloride 250 ML IVC PRN (07:22)
[2020-11-03] MEDS ORDERED: 0.9 % Sodium Chloride 1,000 ML PRIME SCH (07:30)
[2020-11-03] MEDS: Insulin LISPRO 300 UNITS/3 ML VIAL SUBQ SCH ×4 (07:49→22:07)
[2020-11-03 10:16] LABS: Basophils % 0.4 %; Eosinophils # 0.1 K/mcL (0.0-0.6); Eosinophils % 1.9 %; Hematocrit 33.3 % (35.3-44.9); Immature Granulocytes % 0.8 % (0-4); Lymphocytes # 0.6 K/mcL (0.6-4.6); Lymphocytes % 7.5 %; Mean Corpuscular HGB Conc 31.8 g/dL (31.6-35.5); Mean Corpuscular Hemoglobin 30.9 pg (28.0-33.3); Mean Corpuscular Volume 97.1 fL (83.0-100.0); Mean Platelet Volume 11.2 fL (9.4-12.4); Monocytes # 0.8 K/mcL (0.0-1.3); Monocytes % 10.3 %; Platelet Count 134 K/mcL (140-400); Red Blood Count 3.43 M/mcL (3.82-4.97); Red Cell Distribution Width 21.2 % (11.5-14.5); Segmented Neutrophils % 79.1 %; White Blood Count 7.5 K/mcL (4.3-11.1)
[2020-11-03 10:19] LABS: Hemoglobin 10.6 g/dL (11.5-15.4)
[2020-11-03 10:35] LABS: Albumin 4.3 g/dL (3.5-5.7); Albumin/Globulin Ratio 1.4 (1.1-2.2); Calcium 10.1 mg/dL (8.6-10.3); Globulin 3.1 g/dL (2.4-3.5); Potassium 3.6 mEq/L (3.5-5.1); Total Protein 7.4 g/dL (6.4-8.9)
[2020-11-03] MEDS ORDERED: DilTIAZem CD (24hr) 120 MG CAP.ER.24H PO SCH (11:15)
[2020-11-03] MEDS: Piperacillin/Tazobactam 3.375 GM in 0.9 % Sodium Chloride Mini Bag 100 ML IVPB SCH ×2 (11:54→22:04)
[2020-11-03] MEDS: Chlorhexidine Rinse 15 ML MOUTHWASH MM SCH ×2 (11:55→22:06)
[2020-11-03] MEDS: Multivit/Ca/Min/Fe/FA 1 TAB TABLET PO SCH (11:55)
[2020-11-03] MEDS: Metoprolol XL (24 HR) Succ 50 MG TAB.ER.24H PO SCH ×2 (11:55→22:06)
[2020-11-03] MEDS: Nystatin POWDER 30 GM BOTTLE TP SCH ×3 (16:43→22:05)
[2020-11-03] MEDS: Insulin DETEMIR 100 UNIT/ML X5UNITS SUBQ SCH (22:06)
[2020-11-04] MEDS: Levalbuterol Neb 1.25 MG/3 ML IH SCH ×4 (04:42→22:21)
[2020-11-04 05:37] LABS: Basophils % 0.4 %; Eosinophils # 0.2 K/mcL (0.0-0.6); Eosinophils % 2.6 %; Hematocrit 30.3 % (35.3-44.9); Hemoglobin 9.6 g/dL (11.5-15.4); Immature Granulocytes % 0.7 % (0-4); Lymphocytes # 0.5 K/mcL (0.6-4.6); Lymphocytes % 9.1 %; Mean Corpuscular HGB Conc 31.7 g/dL (31.6-35.5); Mean Corpuscular Hemoglobin 30.7 pg (28.0-33.3); Mean Corpuscular Volume 96.8 fL (83.0-100.0); Mean Platelet Volume 11.6 fL (9.4-12.4); Monocytes # 0.6 K/mcL (0.0-1.3); Monocytes % 10.2 %; Neutrophils # 4.4 K/mcL (1.6-8.9); Platelet Count 114 K/mcL (140-400); Red Blood Count 3.13 M/mcL (3.82-4.97); Red Cell Distribution Width 21.2 % (11.5-14.5); White Blood Count 5.7 K/mcL (4.3-11.1)
[2020-11-04] MEDS: Doxycycline 100 MG in 0.9 % Sodium Chloride Mini Bag 100 ML IVPB SCH ×2 (05:43→17:32)
[2020-11-04 06:07] LABS: Albumin 3.7 g/dL (3.5-5.7); Albumin/Globulin Ratio 1.5 (1.1-2.2); Bilirubin,Total 0.9 mg/dL (0.3-1.0); Calcium 9.5 mg/dL (8.6-10.3); Globulin 2.5 g/dL (2.4-3.5); Potassium 3.5 mEq/L (3.5-5.1); Total Protein 6.2 g/dL (6.4-8.9)
[2020-11-04] MEDS: Piperacillin/Tazobactam 3.375 GM in 0.9 % Sodium Chloride Mini Bag 100 ML IVPB SCH ×2 (08:54→20:04)
[2020-11-04] MEDS: Metoprolol XL (24 HR) Succ 50 MG TAB.ER.24H PO SCH (08:55)
[2020-11-04] MEDS: Chlorhexidine Rinse 15 ML MOUTHWASH MM SCH ×2 (08:55→20:03)
[2020-11-04] MEDS: Multivit/Ca/Min/Fe/FA 1 TAB TABLET PO SCH (08:55)
[2020-11-04] MEDS: Nystatin POWDER 30 GM BOTTLE TP SCH ×3 (08:55→20:06)
[2020-11-04] MEDS: Insulin LISPRO 300 UNITS/3 ML VIAL SUBQ SCH ×4 (08:55→20:06)
[2020-11-04] MEDS ORDERED: 0.9 % Sodium Chloride 250 ML IVC PRN (09:02)
[2020-11-04] MEDS ORDERED: *HR* Heparin 10,000 UNIT/10 ML VIAL IV PRN (09:02)
[2020-11-04] MEDS ORDERED: 0.9 % Sodium Chloride 1,000 ML PRIME SCH (09:15)
[2020-11-04] MEDS ORDERED: DilTIAZem 50 MG/50 ML IV.SOLN IVC SCH (11:45)
[2020-11-04] MEDS: Apixaban 2.5 MG TABLET PO SCH (17:32)
[2020-11-04] MEDS: Insulin DETEMIR 100 UNIT/ML X5UNITS SUBQ SCH (20:03)
[2020-11-05] MEDS: Levalbuterol Neb 1.25 MG/3 ML IH SCH ×4 (04:06→22:39)
[2020-11-05] MEDS: Apixaban 2.5 MG TABLET PO SCH ×2 (06:13→17:57)
[2020-11-05] MEDS: Doxycycline 100 MG in 0.9 % Sodium Chloride Mini Bag 100 ML IVPB SCH ×2 (06:13→17:58)
[2020-11-05] MEDS: Multivit/Ca/Min/Fe/FA 1 TAB TABLET PO SCH (08:42)
[2020-11-05] MEDS: Chlorhexidine Rinse 15 ML MOUTHWASH MM SCH ×2 (08:42→21:57)
[2020-11-05] MEDS: Piperacillin/Tazobactam 3.375 GM in 0.9 % Sodium Chloride Mini Bag 100 ML IVPB SCH ×2 (08:43→21:57)
[2020-11-05] MEDS: Nystatin POWDER 30 GM BOTTLE TP SCH ×3 (08:43→21:58)
[2020-11-05 09:08] LABS: Immature Platelets 7.6 % (1.1-6.1); Mean Corpuscular Hemoglobin 28.8 pg (28.0-33.3); Mean Corpuscular Volume 92.7 fL (83.0-100.0); Mean Platelet Volume 11.8 fL (9.4-12.4); Red Blood Count 3.13 M/mcL (3.82-4.97); Red Cell Distribution Width 19.8 % (11.5-14.5); White Blood Count 7.2 K/mcL (4.3-11.1)
[2020-11-05] MEDS: Insulin LISPRO 300 UNITS/3 ML VIAL SUBQ SCH ×4 (09:08→22:01)
[2020-11-05 09:25] LABS: Calcium 8.8 mg/dL (8.6-10.3); Potassium 3.6 mEq/L (3.5-5.1)
[2020-11-05] MEDS: Insulin DETEMIR 100 UNIT/ML X5UNITS SUBQ SCH (22:01)
[2020-11-06] MEDS: Levalbuterol Neb 1.25 MG/3 ML IH SCH ×4 (03:59→22:55)
[2020-11-06] MEDS: Doxycycline 100 MG in 0.9 % Sodium Chloride Mini Bag 100 ML IVPB SCH ×2 (06:37→17:53)
[2020-11-06] MEDS: Apixaban 2.5 MG TABLET PO SCH ×2 (06:38→17:53)
[2020-11-06 07:14] LABS: Hematocrit 28.7 % (35.3-44.9); Mean Corpuscular HGB Conc 31.4 g/dL (31.6-35.5); Mean Corpuscular Hemoglobin 28.7 pg (28.0-33.3); Mean Corpuscular Volume 91.4 fL (83.0-100.0); Mean Platelet Volume 11.9 fL (9.4-12.4); Platelet Count 112 K/mcL (140-400); Red Blood Count 3.14 M/mcL (3.82-4.97); White Blood Count 8.3 K/mcL (4.3-11.1)
[2020-11-06 07:31] LABS: Calcium 8.9 mg/dL (8.6-10.3); Potassium 3.5 mEq/L (3.5-5.1)
[2020-11-06] MEDS: Piperacillin/Tazobactam 3.375 GM in 0.9 % Sodium Chloride Mini Bag 100 ML IVPB SCH ×2 (08:06→20:39)
[2020-11-06] MEDS: Nystatin POWDER 30 GM BOTTLE TP SCH ×3 (08:06→20:40)
[2020-11-06] MEDS: Multivit/Ca/Min/Fe/FA 1 TAB TABLET PO SCH (08:06)
[2020-11-06] MEDS: Chlorhexidine Rinse 15 ML MOUTHWASH MM SCH ×2 (08:06→20:38)
[2020-11-06] MEDS: DilTIAZem CD (24hr) 120 MG CAP.ER.24H PO SCH (08:06)
[2020-11-06] MEDS: Insulin LISPRO 300 UNITS/3 ML VIAL SUBQ SCH ×4 (08:07→20:40)
[2020-11-06] MEDS ORDERED: Furosemide 40 MG/4 ML VIAL IVP ONE (12:24)
[2020-11-06 13:07] LABS: ABG Base Excess -1 mEq/L (-2 to 3); ABG HCO3 24 mEq/L (21-27); ABG Oxygen Saturation 96 % (95-98); ABG PCO2 44 mmHg (35-45); ABG PH 7.36 pH Units (7.32-7.45); ABG PO2 88 mmHg (85-104); ABG TCO2 26 mEq/L (20-26)
[2020-11-06] MEDS: MethylPREDNISolone 40 MG/ML VIAL IVP SCH (14:25)
[2020-11-06] MEDS: Ipratropium Neb 0.5 MG NEBULIZER IH SCH ×2 (15:16→22:55)
[2020-11-06] MEDS: Insulin DETEMIR 100 UNIT/ML X5UNITS SUBQ SCH (20:39)
[2020-11-07] MEDS: Ipratropium Neb 0.5 MG NEBULIZER IH SCH ×4 (03:50→22:44)
[2020-11-07] MEDS: Levalbuterol Neb 1.25 MG/3 ML IH SCH ×4 (03:50→22:44)
[2020-11-07 05:23] LABS: Hematocrit 29.1 % (35.3-44.9); Mean Corpuscular HGB Conc 30.9 g/dL (31.6-35.5); Mean Corpuscular Hemoglobin 28.1 pg (28.0-33.3); Mean Corpuscular Volume 90.9 fL (83.0-100.0); Mean Platelet Volume 11.8 fL (9.4-12.4); Platelet Count 110 K/mcL (140-400); Red Cell Distribution Width 18.5 % (11.5-14.5); White Blood Count 9.4 K/mcL (4.3-11.1)
[2020-11-07 05:40] LABS: Calcium 8.7 mg/dL (8.6-10.3); Potassium 4.5 mEq/L (3.5-5.1)
[2020-11-07] MEDS: MethylPREDNISolone 40 MG/ML VIAL IVP SCH (06:09)
[2020-11-07] MEDS: Doxycycline 100 MG in 0.9 % Sodium Chloride Mini Bag 100 ML IVPB SCH ×2 (06:10→16:30)
[2020-11-07] MEDS: Apixaban 2.5 MG TABLET PO SCH (06:41)
[2020-11-07] MEDS: Chlorhexidine Rinse 15 ML MOUTHWASH MM SCH ×2 (07:43→20:42)
[2020-11-07] MEDS: Multivit/Ca/Min/Fe/FA 1 TAB TABLET PO SCH (07:43)
[2020-11-07] MEDS: Insulin LISPRO 300 UNITS/3 ML VIAL SUBQ SCH ×4 (07:44→20:43)
[2020-11-07] MEDS: DilTIAZem CD (24hr) 120 MG CAP.ER.24H PO SCH (07:44)
[2020-11-07] MEDS: Nystatin POWDER 30 GM BOTTLE TP SCH ×3 (07:45→20:43)
[2020-11-07] MEDS: Piperacillin/Tazobactam 3.375 GM in 0.9 % Sodium Chloride Mini Bag 100 ML IVPB SCH ×2 (07:45→20:42)
[2020-11-07] MEDS ORDERED: *HR* Heparin 10,000 UNIT/10 ML VIAL IV PRN (07:49)
[2020-11-07] MEDS ORDERED: 0.9 % Sodium Chloride 250 ML IVC PRN (07:49)
[2020-11-07] MEDS ORDERED: 0.9 % Sodium Chloride 1,000 ML PRIME SCH (08:00)
[2020-11-07] MEDS ORDERED: Metoprolol XL (24 HR) Succ 50 MG TAB.ER.24H PO SCH (09:00)
[2020-11-07] MEDS ORDERED: Insulin Human Regular 15 UNIT in 0.9 % Sodium Chloride 10 ML IV ONE (10:22)
[2020-11-07] MEDS ORDERED: Insulin DETEMIR 100 UNIT/ML X5UNITS SUBQ ONE (10:22)
[2020-11-07] MEDS ORDERED: Amiodarone Premix 360 MG/200 ML BAG IVC ONE (16:08)
[2020-11-07] MEDS ORDERED: Amiodarone Premix 150 MG/100 ML BAG IVPB ONE (16:08)
[2020-11-07] MEDS: Insulin DETEMIR 100 UNIT/ML X5UNITS SUBQ SCH (20:41)
[2020-11-07] MEDS: Haloperidol Lactate 5 MG/ML VIAL IVP PRN (21:34)
[2020-11-07] MEDS ORDERED: Amiodarone Premix 360 MG/200 ML BAG IVC SCH (22:09)
[2020-11-08] MEDS: Ipratropium Neb 0.5 MG NEBULIZER IH SCH ×4 (03:27→22:38)
[2020-11-08] MEDS: Levalbuterol Neb 1.25 MG/3 ML IH SCH ×4 (03:27→22:38)
[2020-11-08] MEDS: Haloperidol Lactate 5 MG/ML VIAL IVP PRN (03:38)
[2020-11-08 04:20] LABS: Hematocrit 26.8 % (35.3-44.9); Hemoglobin 8.6 g/dL (11.5-15.4); Mean Corpuscular HGB Conc 32.1 g/dL (31.6-35.5); Mean Corpuscular Hemoglobin 28.7 pg (28.0-33.3); Mean Corpuscular Volume 89.3 fL (83.0-100.0); Mean Platelet Volume 12.2 fL (9.4-12.4); Platelet Count 121 K/mcL (140-400); Red Cell Distribution Width 18.4 % (11.5-14.5); White Blood Count 10.8 K/mcL (4.3-11.1)
[2020-11-08 04:37] LABS: Calcium 8.9 mg/dL (8.6-10.3); Potassium 3.6 mEq/L (3.5-5.1)
[2020-11-08] MEDS: Doxycycline 100 MG in 0.9 % Sodium Chloride Mini Bag 100 ML IVPB SCH ×2 (05:15→17:29)
[2020-11-08] MEDS: Multivit/Ca/Min/Fe/FA 1 TAB TABLET PO SCH (09:05)
[2020-11-08] MEDS: Piperacillin/Tazobactam 3.375 GM in 0.9 % Sodium Chloride Mini Bag 100 ML IVPB SCH ×2 (09:06→21:34)
[2020-11-08] MEDS: Nystatin POWDER 30 GM BOTTLE TP SCH ×3 (09:06→22:02)
[2020-11-08] MEDS: Chlorhexidine Rinse 15 ML MOUTHWASH MM SCH ×2 (09:06→21:19)
[2020-11-08] MEDS: Insulin LISPRO 300 UNITS/3 ML VIAL SUBQ SCH ×4 (09:06→21:26)
[2020-11-08] MEDS ORDERED: Furosemide 40 MG/4 ML VIAL IVP ONE (11:46)
[2020-11-08] MEDS ORDERED: DilTIAZem CD (24hr) 120 MG CAP.ER.24H PO SCH (12:00)
[2020-11-08] MEDS: Insulin DETEMIR 100 UNIT/ML X5UNITS SUBQ SCH (21:57)
[2020-11-08] MEDS: Melatonin 3 MG TABLET PO PRN (22:15)
[2020-11-09] MEDS: Haloperidol Lactate 5 MG/ML VIAL IVP PRN ×3 (01:14→21:46)
[2020-11-09] MEDS: Levalbuterol Neb 1.25 MG/3 ML IH SCH ×4 (03:56→21:38)
[2020-11-09] MEDS: Ipratropium Neb 0.5 MG NEBULIZER IH SCH ×4 (03:56→21:38)
[2020-11-09 04:29] LABS: Hematocrit 28.9 % (35.3-44.9); Hemoglobin 8.9 g/dL (11.5-15.4); Mean Corpuscular HGB Conc 30.8 g/dL (31.6-35.5); Mean Corpuscular Hemoglobin 27.9 pg (28.0-33.3); Mean Corpuscular Volume 90.6 fL (83.0-100.0); Mean Platelet Volume 11.5 fL (9.4-12.4); Platelet Count 135 K/mcL (140-400); Red Blood Count 3.19 M/mcL (3.82-4.97); Red Cell Distribution Width 18.9 % (11.5-14.5); White Blood Count 11.2 K/mcL (4.3-11.1)
[2020-11-09 04:48] LABS: Calcium 9.5 mg/dL (8.6-10.3)
[2020-11-09] MEDS: Doxycycline 100 MG in 0.9 % Sodium Chloride Mini Bag 100 ML IVPB SCH ×2 (05:19→17:47)
[2020-11-09] MEDS: Insulin LISPRO 300 UNITS/3 ML VIAL SUBQ SCH ×4 (07:40→21:24)
[2020-11-09] MEDS: Piperacillin/Tazobactam 3.375 GM in 0.9 % Sodium Chloride Mini Bag 100 ML IVPB SCH ×2 (07:41→20:07)
[2020-11-09] MEDS ORDERED: *HR* Heparin 10,000 UNIT/10 ML VIAL IV PRN ×2 (07:45)
[2020-11-09] MEDS ORDERED: 0.9 % Sodium Chloride 250 ML IVC PRN (07:45)
[2020-11-09] MEDS ORDERED: 0.9 % Sodium Chloride 1,000 ML PRIME SCH (07:45)
[2020-11-09] MEDS: Chlorhexidine Rinse 15 ML MOUTHWASH MM SCH ×2 (07:46→20:13)
[2020-11-09] MEDS: Nystatin POWDER 30 GM BOTTLE TP SCH ×3 (07:46→20:08)
[2020-11-09] MEDS: Multivit/Ca/Min/Fe/FA 1 TAB TABLET PO SCH (07:47)
[2020-11-09 09:18] LABS: Magnesium 2.1 mg/dL (1.6-2.6)
[2020-11-09] MEDS: Insulin DETEMIR 100 UNIT/ML X5UNITS SUBQ SCH (21:23)
[2020-11-10] MEDS: Ipratropium Neb 0.5 MG NEBULIZER IH SCH ×4 (03:55→21:54)
[2020-11-10] MEDS: Levalbuterol Neb 1.25 MG/3 ML IH SCH ×4 (03:55→21:54)
[2020-11-10 04:41] LABS: Hematocrit 27.6 % (35.3-44.9); Hemoglobin 8.8 g/dL (11.5-15.4); Mean Corpuscular HGB Conc 31.9 g/dL (31.6-35.5); Mean Corpuscular Hemoglobin 28.7 pg (28.0-33.3); Mean Corpuscular Volume 89.9 fL (83.0-100.0); Mean Platelet Volume 11.5 fL (9.4-12.4); Platelet Count 160 K/mcL (140-400); Red Blood Count 3.07 M/mcL (3.82-4.97); Red Cell Distribution Width 19.4 % (11.5-14.5); White Blood Count 9.1 K/mcL (4.3-11.1)
[2020-11-10 04:59] LABS: Potassium 4.4 mEq/L (3.5-5.1)
[2020-11-10] MEDS: Apixaban 2.5 MG TABLET PO SCH (05:35)
[2020-11-10] MEDS: Doxycycline 100 MG in 0.9 % Sodium Chloride Mini Bag 100 ML IVPB SCH ×2 (06:12→18:07)
[2020-11-10] MEDS: Insulin LISPRO 300 UNITS/3 ML VIAL SUBQ SCH ×4 (07:08→20:26)
[2020-11-10] MEDS ORDERED: Heparin 1,000 UNITS/500 mL 500 ML ONE (07:51)
[2020-11-10] MEDS ORDERED: 0.9 % Sodium Chloride 500 ML ONE (07:58)
[2020-11-10] MEDS ORDERED: *HR* Heparin 5,000 UNIT/ML VIAL ONE (08:26)
[2020-11-10] MEDS: Chlorhexidine Rinse 15 ML MOUTHWASH MM SCH ×2 (10:01→20:30)
[2020-11-10] MEDS: Multivit/Ca/Min/Fe/FA 1 TAB TABLET PO SCH (10:02)
[2020-11-10] MEDS: Piperacillin/Tazobactam 3.375 GM in 0.9 % Sodium Chloride Mini Bag 100 ML IVPB SCH (10:02)
[2020-11-10] MEDS: Nystatin POWDER 30 GM BOTTLE TP SCH ×3 (10:04→20:32)
[2020-11-10] MEDS ORDERED: Perflutren Lipid Microsphere 1.3 ML in 0.9 % Sodium Chloride 8.7 ML IVP PRN (16:01)
[2020-11-10 16:20] LABS: ABG Base Excess 5 mEq/L (-2 to 3); ABG HCO3 30 mEq/L (21-27); ABG Oxygen Saturation 96 % (95-98); ABG PCO2 46 mmHg (35-45); ABG PH 7.42 pH Units (7.32-7.45); ABG PO2 81 mmHg (85-104); ABG TCO2 31 mEq/L (20-26)
[2020-11-10 16:46] LABS: Troponin I < 0.03 ng/mL (< 0.04)
[2020-11-10 17:20] LABS: Lactate Dehydrogenase 216 Units/L (140-271)
[2020-11-10] MEDS: Insulin DETEMIR 100 UNIT/ML X5UNITS SUBQ SCH (20:26)
[2020-11-11 03:35] LABS: Hematocrit 28.6 % (35.3-44.9); Hemoglobin 8.5 g/dL (11.5-15.4); Mean Corpuscular HGB Conc 29.7 g/dL (31.6-35.5); Mean Corpuscular Hemoglobin 27.7 pg (28.0-33.3); Mean Corpuscular Volume 93.2 fL (83.0-100.0); Mean Platelet Volume 11.8 fL (9.4-12.4); Platelet Count 133 K/mcL (140-400); Red Blood Count 3.07 M/mcL (3.82-4.97); Red Cell Distribution Width 19.5 % (11.5-14.5); White Blood Count 8.5 K/mcL (4.3-11.1)
[2020-11-11 03:45] LABS: INR 1.4; Prothrombin Time 15.7 Seconds (9.4-12.1)
[2020-11-11 04:05] LABS: Calcium 9.4 mg/dL (8.6-10.3); Magnesium 2.2 mg/dL (1.6-2.6); Phosphorous 6.4 mg/dL (2.7-4.5); Potassium 4.3 mEq/L (3.5-5.1)
[2020-11-11] MEDS: Ipratropium Neb 0.5 MG NEBULIZER IH SCH ×4 (04:14→22:02)
[2020-11-11] MEDS: Levalbuterol Neb 1.25 MG/3 ML IH SCH ×4 (04:14→22:02)
[2020-11-11 04:16] LABS: Thyroid Stimulating Hormone 19.143 mcIU/mL (0.340-5.600)
[2020-11-11] MEDS: Doxycycline 100 MG in 0.9 % Sodium Chloride Mini Bag 100 ML IVPB SCH (05:55)
[2020-11-11] MEDS ORDERED: *HR* Heparin 10,000 UNIT/10 ML VIAL IV PRN (08:05)
[2020-11-11] MEDS ORDERED: 0.9 % Sodium Chloride 250 ML IVC PRN (08:05)
[2020-11-11] MEDS: Nystatin POWDER 30 GM BOTTLE TP SCH ×3 (09:23→20:29)
[2020-11-11] MEDS: Multivit/Ca/Min/Fe/FA 1 TAB TABLET PO SCH (10:08)
[2020-11-11] MEDS: Chlorhexidine Rinse 15 ML MOUTHWASH MM SCH ×2 (10:08→20:28)
[2020-11-11] MEDS: Insulin LISPRO 300 UNITS/3 ML VIAL SUBQ SCH ×4 (10:09→20:30)
[2020-11-11 17:17] LABS: Bacteria,Urine Moderate per hpf (None-Few); Bilirubin,Urine Negative (Negative); Blood,Urine Moderate (Negative); Budding Yeast,Urine Many per hpf (None Seen); Clarity,Urine Ex.Turbid (Clear); Color,Urine Dark-Yellow (Yellow); Glucose,Urine (UA) Normal (Normal); Ketones,Urine Trace mg/dL (Negative); Leukocyte Esterase,Urine Large (Negative); Nitrite,Urine Negative (Negative); Protein,Urine >=600 mg/dL (Neg-Trace); RBC,Urine TNTC per hpf (0-3); Specific Gravity,Urine 1.029 (1.010-1.025); Urobilinogen,Urine Normal (Normal); WBC,Urine TNTC per hpf (0-3)
[2020-11-11] MEDS: Apixaban 2.5 MG TABLET PO SCH (18:35)
[2020-11-11] MEDS: Insulin DETEMIR 100 UNIT/ML X5UNITS SUBQ SCH (20:35)
[2020-11-12] MEDS: Ipratropium Neb 0.5 MG NEBULIZER IH SCH ×4 (03:30→23:12)
[2020-11-12] MEDS: Levalbuterol Neb 1.25 MG/3 ML IH SCH ×4 (03:30→23:12)
[2020-11-12] MEDS: Apixaban 2.5 MG TABLET PO SCH ×2 (09:22→18:29)
[2020-11-12] MEDS: Chlorhexidine Rinse 15 ML MOUTHWASH MM SCH (09:27)
[2020-11-12] MEDS: Insulin LISPRO 300 UNITS/3 ML VIAL SUBQ SCH ×3 (09:27→16:18)
[2020-11-12] MEDS: Multivit/Ca/Min/Fe/FA 1 TAB TABLET PO SCH (09:28)
[2020-11-12] MEDS: Nystatin POWDER 30 GM BOTTLE TP SCH ×2 (09:28→16:07)
[2020-11-12 10:08] LABS: RBC,Pleural Fluid < 2000 RBC/mcL
[2020-11-12 10:18] LABS: Appearance of Pleural Fl Clear (Clear)
[2020-11-12 10:24] LABS: Basophils,Pleural Fluid 0 %; Eosinophils,Pleural Fluid 0 %
[2020-11-12 10:46] LABS: Basophils % 0.1 %; Eosinophils % 0.2 %; Hematocrit 28.7 % (35.3-44.9); Hemoglobin 9.1 g/dL (11.5-15.4); Immature Granulocytes % 1.9 % (0-4); Lymphocytes # 1.1 K/mcL (0.6-4.6); Lymphocytes % 7.5 %; Mean Corpuscular HGB Conc 31.7 g/dL (31.6-35.5); Mean Corpuscular Hemoglobin 28.2 pg (28.0-33.3); Mean Corpuscular Volume 88.9 fL (83.0-100.0); Mean Platelet Volume 12.7 fL (9.4-12.4); Monocytes # 0.7 K/mcL (0.0-1.3); Monocytes % 5.1 %; Nucleated Red Blood Cells 0.7 /100 WBC (0); Platelet Count 123 K/mcL (140-400); Red Blood Count 3.23 M/mcL (3.82-4.97); Segmented Neutrophils % 85.2 %
[2020-11-12 11:00] LABS: Amylase,Pleural Fluid < 10 Units/L (No Ref Range); Glucose,Pleural Fluid 152 mg/dL (No Ref Range); LDH,Pleural Fluid 191 Units/L (No Ref Range); Total Protein,Pleural Fluid 2.3 g/dL
[2020-11-12 11:27] LABS: Neutrophils # 11.9 K/mcL (1.6-8.9)
[2020-11-12 11:29] LABS: Anisocytosis 1+ (Not Present); Platelet Estimate Slight Decrease (Normal); Polychromasia 1+ (Not Present)
[2020-11-12 13:37] LABS: Calcium 9.2 mg/dL (8.6-10.3); Potassium 6.1 mEq/L (3.5-5.1)
[2020-11-12] MEDS ORDERED: Calcium Gluconate 1gm/50mL 1 GM/50 ML BAG IVPB ONE (14:23)
[2020-11-12] MEDS ORDERED: SODIUM ZIRCONIUM CYCLOSILICATE 5 GM POWD.PACK PO SCH (14:30)
[2020-11-12 15:58] VITALS: BP 111/49
[2020-11-14 12:14] LABS: Fluid Source for Cholesterol PLEURAL FLUID; Fluid Source for Triglycerides PLEURAL FLUID
[2020-11-14 12:43] LABS: Cholesterol,Body Fluid 32 mg/dL; Triglycerides,Body Fluid 17 mg/dL
== END 2020-11-12 19:16 | disposition short-term general hospital (02) | DRG 377 ==
LOC: SUATTDRO → EMEROOARM 09:11 → 2NENU 14:08 → SUATTDRO 14:08 → 2NENU 16:50 → 2NNU 11-02 15:51 → 2ANU 11-08 17:45 → 2NNU 11-10 17:57
PROVIDERS: ADMIT Internal Medicine; ATTEND Internal Medicine
PROC: IRPERMA (2020-11-10 12:00)